=== PATIENT | female | born 1965 | race Two or more races ===

== ENCOUNTER 2017-11-28 12:53 | Outpatient (CLI) | payer OTHER ==
[~2017-11-28 12:53] MED LIST: ESTR0.624 PO; RELAFEN500 MG
[2017-11-29] MEDS ORDERED: AMOX-CLAV 875-1 EACH PO (12:21)
== END 2017-11-28 13:14 | disposition home or self-care (01) ==
LOC: MAMO-SONO 12:53
DX: Z12.31 Encounter for screening mammogram for malignant neoplasm of breast (principal); N60.12 Diffuse cystic mastopathy of left breast; N60.11 Diffuse cystic mastopathy of right breast

== ENCOUNTER 2017-11-29 11:22 | Outpatient (CLI) | payer OTHER ==
[~2017-11-29] VITALS: Ht 160 cm; Wt 54.9 kg
[2017-11-29] MEDS ORDERED: AMOX-CLAV 875-1 EACH PO (12:21)
== END 2017-11-29 11:40 | disposition home or self-care (01) ==
LOC: OFIC 805 11:22
DX: J32.8 Other chronic sinusitis (principal); J34.3 Hypertrophy of nasal turbinates; J34.2 Deviated nasal septum; H90.3 Sensorineural hearing loss, bilateral; H93.13 Tinnitus, bilateral

== ENCOUNTER 2017-12-19 13:46 | Outpatient (CLI) | payer OTHER ==
[~2017-12-19 13:46] MED LIST changes: +AMOX-CLAV 875-1 EACH PO
== END 2017-12-19 13:56 | disposition home or self-care (01) ==
LOC: TOM 13:46
DX: J32.4 Chronic pansinusitis (principal)

== ENCOUNTER 2018-01-17 10:30 | Outpatient (CLI) | payer OTHER ==
[~2018-01-17] VITALS: Ht 152.4 cm; Wt 54.9 kg
[2018-01-17] MEDS ORDERED: ZYRTEC10 MG PO (12:19)
[2018-01-17] MEDS ORDERED: FLONASE16 GM NASAL (12:19)
== END 2018-01-17 10:45 | disposition home or self-care (01) ==
LOC: OFIC 805 10:30
DX: H90.3 Sensorineural hearing loss, bilateral (principal); H93.13 Tinnitus, bilateral; K04.8 Radicular cyst; J32.4 Chronic pansinusitis; J34.3 Hypertrophy of nasal turbinates; J34.2 Deviated nasal septum

== ENCOUNTER 2018-06-11 15:59 | Outpatient (CLI) | payer OTHER ==
[~2018-06-11 15:59] MED LIST changes: +FLONASE16 GM NASAL; +ZYRTEC10 MG PO
== END 2018-06-11 16:04 | disposition home or self-care (01) ==
LOC: LAB 15:59
DX: T22.1 Burn of first degree of shoulder and upper limb, except wrist and hand (principal); M25.521 Pain in right elbow; M25.50 Pain in unspecified joint

== ENCOUNTER 2018-06-13 13:51 | Outpatient (CLI) | payer OTHER | END 2018-06-13 14:22 | disposition home or self-care (01) | LOC: SONOGRAMA 13:51 | DX: M25.521 Pain in right elbow (principal) ==

== ENCOUNTER → 2018-09-24 07:29 | Outpatient (CLI) | payer OTHER | END | disposition home or self-care (01) | LOC: LAB 07:29 | DX: E03.8 Other specified hypothyroidism (principal) ==

== ENCOUNTER 2018-12-06 14:03 | Outpatient (CLI) | payer OTHER | END 2018-12-06 14:14 | disposition home or self-care (01) | LOC: MAMO-SONO 14:03 | DX: Z12.31 Encounter for screening mammogram for malignant neoplasm of breast (principal); N63.10 Unspecified lump in the right breast, unspecified quadrant; N63.20 Unspecified lump in the left breast, unspecified quadrant ==

== ENCOUNTER → 2019-05-10 | Outpatient (CLI) | payer OTHER | END | disposition home or self-care (01) | LOC: RAD 05-09 14:05 | DX: M79.605 Pain in left leg (principal); M25.552 Pain in left hip ==

== ENCOUNTER 2019-10-15 11:11 | Emergency (ER) | payer OTHER ==
[~2019-10-15] VITALS: Ht 160 cm; Wt 54.9 kg
== END 2019-10-15 13:18 | disposition home or self-care (01) ==
LOC: ER 11:11
DX: R19.7 Diarrhea, unspecified (principal); Z03.818 Encounter for observation for suspected exposure to other biological agents ruled out

== ENCOUNTER 2019-11-21 14:31 | Outpatient (CLI) | payer OTHER | END 2019-11-21 14:44 | disposition home or self-care (01) | LOC: MAMO-SONO 14:31 | PROVIDERS: ATTEND Specialist | DX: Z12.31 Encounter for screening mammogram for malignant neoplasm of breast (principal); N63.10 Unspecified lump in the right breast, unspecified quadrant; N63.20 Unspecified lump in the left breast, unspecified quadrant ==

== ENCOUNTER 2019-12-20 12:22 | Outpatient (CLI) | payer OTHER | END 2019-12-20 12:38 | disposition home or self-care (01) | LOC: EDBD 12:22 → SONOGRAMA 12:22 | PROVIDERS: ATTEND Surgery | DX: N60.11 Diffuse cystic mastopathy of right breast (principal); N60.12 Diffuse cystic mastopathy of left breast ==

== ENCOUNTER 2020-01-03 17:54 | Outpatient (CLI) | payer OTHER | END 2020-01-03 17:55 | disposition home or self-care (01) | LOC: PPH VACUNA 17:54 | DX: Z23 Encounter for immunization (principal) ==

== ENCOUNTER 2020-01-14 08:06 | Outpatient (CLI) | payer OTHER | END 2020-01-14 08:22 | disposition home or self-care (01) | LOC: LAB 08:06 | PROVIDERS: ATTEND Internal Medicine Cardiovascular Disease | DX: I10 Essential (primary) hypertension (principal); E11.9 Type 2 diabetes mellitus without complications; E03.8 Other specified hypothyroidism; E78.2 Mixed hyperlipidemia; E55.9 Vitamin D deficiency, unspecified ==

== ENCOUNTER 2020-04-02 15:24 | Outpatient (CLI) | payer OTHER | END 2020-04-02 18:00 | disposition home or self-care (01) | LOC: PPH VACUNA 15:24 | DX: Z23 Encounter for immunization (principal) ==

== ENCOUNTER 2020-05-14 14:06 | Outpatient (CLI) | payer OTHER | END 2020-05-14 14:11 | disposition home or self-care (01) | LOC: RAD 14:06 | PROVIDERS: ATTEND General Practice | DX: R05 Cough (principal) ==

== ENCOUNTER 2020-05-18 06:47 | Outpatient (CLI) | payer OTHER | END 2020-05-18 06:51 | disposition home or self-care (01) | LOC: LAB 06:47 | PROVIDERS: ATTEND General Practice | DX: Z11.3 Encounter for screening for infections with a predominantly sexual mode of transmission (principal) ==

== ENCOUNTER 2020-06-02 13:45 | Outpatient (CLI) | payer OTHER | END 2020-06-02 13:57 | disposition home or self-care (01) | LOC: RAD 13:45 → SONOGRAMA 13:45 | PROVIDERS: ATTEND Surgery | DX: N60.01 Solitary cyst of right breast (principal); N60.02 Solitary cyst of left breast; N60.11 Diffuse cystic mastopathy of right breast; N60.12 Diffuse cystic mastopathy of left breast; N64.59 Other signs and symptoms in breast ==

== ENCOUNTER 2020-06-12 14:15 | Outpatient (CLI) | payer OTHER | END 2020-06-12 14:39 | disposition home or self-care (01) | LOC: SONOGRAMA 14:15 | PROVIDERS: ATTEND Surgery | DX: N60.02 Solitary cyst of left breast (principal); N60.11 Diffuse cystic mastopathy of right breast; N60.12 Diffuse cystic mastopathy of left breast; N64.59 Other signs and symptoms in breast ==

== ENCOUNTER 2020-09-22 07:16 | Outpatient (CLI) | payer OTHER | END 2020-09-22 07:18 | disposition home or self-care (01) | LOC: SONOGRAMA 07:16 | PROVIDERS: ATTEND Internal Medicine Cardiovascular Disease | DX: R10.9 Unspecified abdominal pain (principal) ==

== ENCOUNTER 2021-01-21 16:15 | Outpatient (CLI) | payer OTHER | END 2021-01-21 16:20 | disposition home or self-care (01) | LOC: PPH VACUNA 16:15 | PROVIDERS: ATTEND Emergency Medicine Pediatric Emergency Medicine | DX: Z23 Encounter for immunization (principal) ==

== ENCOUNTER 2021-02-08 10:55 | Outpatient (CLI) | payer OTHER | END 2021-02-08 10:59 | disposition home or self-care (01) | LOC: MAMO-SONO 10:55 | PROVIDERS: ATTEND Surgery | DX: N60.11 Diffuse cystic mastopathy of right breast (principal); N60.12 Diffuse cystic mastopathy of left breast; Z12.31 Encounter for screening mammogram for malignant neoplasm of breast ==

== ENCOUNTER → 2021-03-01 07:06 | Outpatient (CLI) | payer OTHER | END | disposition home or self-care (01) | LOC: LAB 07:06 | PROVIDERS: ATTEND Internal Medicine Cardiovascular Disease | DX: I10 Essential (primary) hypertension (principal); E11.9 Type 2 diabetes mellitus without complications; E03.8 Other specified hypothyroidism; E78.2 Mixed hyperlipidemia; E55.9 Vitamin D deficiency, unspecified ==

== ENCOUNTER → 2021-04-02 | Outpatient (CLI) | payer OTHER | END | disposition home or self-care (01) | LOC: PPH VACUNA 08:00 | PROVIDERS: ATTEND Emergency Medicine Pediatric Emergency Medicine | DX: Z23 Encounter for immunization (principal) ==

== ENCOUNTER 2021-09-07 13:59 | Outpatient (CLI) | payer OTHER | END 2021-09-07 14:05 | disposition home or self-care (01) | LOC: RAD 13:59 | PROVIDERS: ATTEND General Practice | DX: M25.562 Pain in left knee (principal) ==

== ENCOUNTER 2021-09-08 07:48 | Outpatient (CLI) | payer OTHER | END 2021-09-08 07:52 | disposition home or self-care (01) | LOC: LAB 07:48 | PROVIDERS: ATTEND General Practice | DX: Z00.00 Encounter for general adult medical examination without abnormal findings (principal); E78.5 Hyperlipidemia, unspecified; E55.9 Vitamin D deficiency, unspecified; R42 Dizziness and giddiness; N39.0 Urinary tract infection, site not specified; R10.2 Pelvic and perineal pain; R10.9 Unspecified abdominal pain; R51.9 Headache, unspecified ==

== ENCOUNTER 2021-12-15 13:20 | Outpatient (CLI) | payer OTHER | END 2021-12-15 13:25 | disposition home or self-care (01) | LOC: PPH VACUNA 13:20 | PROVIDERS: ATTEND Emergency Medicine Pediatric Emergency Medicine | DX: Z23 Encounter for immunization (principal) ==

== ENCOUNTER 2022-11-23 14:25 | Outpatient (CLI) | payer OTHER | END 2022-11-23 14:32 | disposition home or self-care (01) | LOC: MRI 14:25 | PROVIDERS: ATTEND Orthopaedic Surgery | DX: M25.561 Pain in right knee (principal) | CPT/HCPCS: 73721 ==

== ENCOUNTER 2023-01-06 01:10 | Outpatient (CLI) | payer OTHER | END 2023-01-06 01:20 | disposition home or self-care (01) | LOC: PPH VACUNA 01:10 | PROVIDERS: ATTEND Emergency Medicine Pediatric Emergency Medicine | DX: Z23 Encounter for immunization (principal) | CPT/HCPCS: 90686; G0008 ==

== ENCOUNTER 2023-02-13 13:57 | Outpatient (CLI) | payer OTHER | END 2023-02-13 14:02 | disposition home or self-care (01) | LOC: RAD 13:57 | PROVIDERS: ATTEND Orthopaedic Surgery Sports Medicine | DX: M17.0 Bilateral primary osteoarthritis of knee (principal) ==

== ENCOUNTER 2023-02-27 08:28 | Outpatient (CLI) | payer OTHER ==
[2023-02-27 08:46] LABS: HEMATOCRIT 37.6 % (36.0-45.00); HEMOGLOBIN 12.1 g/dL (12.0-15.00); MEAN CELL VOLUME 83.6 fL (80.00-100.00); MEAN CORPUSCULAR HEMOGLOBIN 26.9 pg (27.00-32.0); MEAN CORPUSCULAR HGB CONC 32.2 g/dl (32.0-36.0); PLATELET COUNT 183 K/uL (150-450); RED CELL DISTRIBUTION WIDTH 14.4 % (11.5-14.5)
[2023-02-27 08:50] LABS: PH,URINE 5.5 (5.0-8.0); URINE APPEARANCE Clear; URINE BILIRRUBIN Negative (NEGATIVE); URINE BLOOD Trace; URINE COLOR Yellow; URINE GLUCOSE Negative (NEGATIVE); URINE LEUKOCYTE Negative; URINE NITRATE Negative; URINE PROTEIN Negative (NEGATIVE); URINE UROBILINOGEN 0.2 E.U./dl
[2023-02-27 08:55] LABS: URINE BACTERIA 15.1 uL (0.0-1933)
[2023-02-27 09:02] LABS: URINE EPITHELIAL CELLS 0.6 uL (0.0-38.8); URINE RBC 1.8 uL (0.0-20.8); URINE WBC 0.6 uL (0.0-23.2)
[2023-02-27 09:27] LABS: INR 0.99; PARTIAL THROMBOPLASTIN TIME 31.6 SECONDS (22.0-34.0); PROTHROMBIN TIME 10.4 SECONDS (9.0-11.5)
[2023-02-27 09:35] LABS: ALBUMIN 4.1 gm/dL (3.4-5.0); BILIRUBIN TOTAL 0.66 mg/dL (0.3-1.2); CALCIUM 9.6 mg/dL (8.5-10.1); CREATININE SERUM 0.76 mg/dL (0.55-1.02); GFR 78.44; GLOBULINA 3.6 G/DL (2.4-3.5); POTASSIUM 4.14 mEq/L (3.5-5.1); TOTAL PROTEIN 7.7 gm/dL (6.4-8.2)
== END 2023-02-27 08:30 | disposition home or self-care (01) ==
LOC: LAB 08:28
PROVIDERS: ATTEND Orthopaedic Surgery Sports Medicine
DX: S83.272A Complex tear of lateral meniscus, current injury, left knee, initial encounter (principal)

== ENCOUNTER 2023-02-27 13:29 | Outpatient (CLI) | payer OTHER | END 2023-02-27 13:34 | disposition home or self-care (01) | LOC: RAD 13:29 | PROVIDERS: ATTEND Orthopaedic Surgery Sports Medicine | DX: S83.272A Complex tear of lateral meniscus, current injury, left knee, initial encounter (principal) ==

== ENCOUNTER 2024-01-15 06:53 | Emergency (ER) | payer OTHER ==
[~2024-01-15] VITALS: Ht 160 cm; Wt 56.2 kg
[2024-01-15] MEDS ORDERED: KETOROLAC TROMETHAMINE 60 MG VIAL IM STA (08:06)
== END 2024-01-15 10:34 | disposition home or self-care (01) ==
LOC: ER 06:55
DX: S39.81XA Other specified injuries of abdomen, initial encounter (principal); S29.8XXA Other specified injuries of thorax, initial encounter; S79.912A Unspecified injury of left hip, initial encounter; S49.92XA Unspecified injury of left shoulder and upper arm, initial encounter; V49.88XA Car occupant (driver) (passenger) injured in other specified transport accidents, initial encounter; Y93.89 Activity, other specified; Y92.89 Other specified places as the place of occurrence of the external cause; Y99.8 Other external cause status

== ENCOUNTER 2024-02-26 08:39 | Outpatient (CLI) | payer OTHER ==
[2024-02-26 08:49] LABS: HEMATOCRIT 41.1 % (36.0-45.00); HEMOGLOBIN 13.5 g/dL (12.0-15.00); MEAN CELL VOLUME 83.3 fL (80.00-100.00); MEAN CORPUSCULAR HEMOGLOBIN 27.3 pg (27.00-32.0); MEAN CORPUSCULAR HGB CONC 32.8 g/dl (32.0-36.0); PLATELET COUNT 209 K/uL (150-450); RED BLOOD COUNT 4.93 M/uL (4.00-6.00); RED CELL DISTRIBUTION WIDTH 14.2 % (11.5-14.5)
[2024-02-26 08:50] LABS: ERYTHROCYTE SEDIMENTATION RATE 8 mm/hr
[2024-02-26 08:55] LABS: PH,URINE 5.5 (5.0-8.0); URINE APPEARANCE Clear; URINE BILIRRUBIN Negative (NEGATIVE); URINE BLOOD Negative; URINE COLOR Yellow; URINE GLUCOSE Negative (NEGATIVE); URINE KETONE Negative (NEGATIVE); URINE LEUKOCYTE Negative; URINE NITRATE Negative; URINE PROTEIN Negative (NEGATIVE); URINE UROBILINOGEN 0.2 E.U./dl
[2024-02-26 08:58] LABS: URINE BACTERIA 20.1 uL (0.0-1933)
[2024-02-26 09:18] LABS: URINE EPITHELIAL CELLS 0.7 uL (0.0-38.8); URINE RBC 1.3 uL (0.0-20.8); URINE WBC 0.9 uL (0.0-23.2)
[2024-02-26 10:10] LABS: ANION GAP 7 (10.0-20.0); BLOOD UREA NITROGEN 15 mg/dL (7-18); BUN CREA RATIO 19 (7.0-25.0); C-REACTIVE PROTEIN < 0.29 MG/DL (0.00-0.29); CALCIUM 9.9 mg/dL (8.5-10.1); CARBON DIOXIDE 30 mEq/L (21-32); CHLORIDE 105 mmol/L (98-107); CREATININE SERUM 0.79 mg/dL (0.55-1.02); GFR 74.75; GLUCOSE FASTING 96 mg/dL (65-100); OSMOLALITY SERUM 276 MOSM/KG (275-295); POTASSIUM 4.01 mEq/L (3.5-5.1); SODIUM 138 mmol/L (136-145); T4 TOTAL 11.51 UG/DL (4.8-13.9)
[2024-02-26 10:23] LABS: URIC ACID 4.9 mg/dL (2.5-7.5)
[2024-02-26 12:17] LABS: T3 TOTAL 1.02 ng/ml (0.846-2.02); VITAMIN D3 25 HYDROXY 46.4 ng/ml (30-120)
== END 2024-02-26 11:24 | disposition home or self-care (01) ==
LOC: LAB 08:39
DX: E03.8 Other specified hypothyroidism (principal); M06.09 Rheumatoid arthritis without rheumatoid factor, multiple sites; I10 Essential (primary) hypertension; R77.8 Other specified abnormalities of plasma proteins; E55.9 Vitamin D deficiency, unspecified; E79.0 Hyperuricemia without signs of inflammatory arthritis and tophaceous disease; R94.5 Abnormal results of liver function studies

== ENCOUNTER 2024-05-13 09:23 | Outpatient (CLI) | payer OTHER ==
[2024-05-14 08:08] LABS: HEPATITIS A ANTIBODY IGG Positive (Negative); HEPATITIS C VIRUS ANTIBODY Non Reactive (Non Reactive)
[2024-05-14 10:04] LABS: HEPATITIS B SURFACE ANTIBODY Reactive (.)
== END 2024-05-13 15:09 | disposition home or self-care (01) ==
LOC: LAB 09:23
DX: A64 Unspecified sexually transmitted disease (principal); B19.9 Unspecified viral hepatitis without hepatic coma

== ENCOUNTER 2024-07-25 13:25 | Outpatient (CLI) | payer OTHER | END 2024-07-25 13:27 | disposition home or self-care (01) | LOC: NUCLEAR 13:25 | PROVIDERS: ATTEND Internal Medicine Rheumatology | DX: M81.0 Age-related osteoporosis without current pathological fracture (principal) ==

== ENCOUNTER 2024-07-30 09:05 | Outpatient (CLI) | payer OTHER ==
[2024-07-31 09:06] LABS: COMPLEMENT C3 134 mg/dL (82-167); COMPLEMENT C4 27 mg/dL (12-38)
[2024-07-31 13:06] LABS: DNA AB DOUBLE STRABDED < 1 IU/mL (0-9); rnp 0.2 AI (0.0-0.9); sjogrens ssa < 0.2 AI (0.0-0.9); sjogrens ssb < 0.2 AI (0.0-0.9); smith ab < 0.2 AI (0.0-0.9)
== END 2024-07-30 09:14 | disposition home or self-care (01) ==
LOC: LAB 09:05
PROVIDERS: ATTEND Internal Medicine Rheumatology
DX: M35.9 Systemic involvement of connective tissue, unspecified (principal)

== ENCOUNTER → 2024-08-25 | Emergency (ER) | payer OTHER ==
[~2024-08-25] VITALS: Ht 160 cm; Wt 56.7 kg
[~2024-08-25] MED LIST changes: +DEXAMETHASONE SODIUM PHOSPHATE 4 MG/ML VIAL IM ONE; +DEXAMETHASONE SODIUM PHOSPHATE 4 MG/ML VIAL ONE; +IBUPROFEN800 MG PO; +KETOROLAC TROMETHAMINE 60 MG VIAL IM ONE
== END | disposition home or self-care (01) ==
LOC: ER 12:39
DX: M75.51 Bursitis of right shoulder (principal)

== ENCOUNTER 2024-08-27 10:51 | Outpatient (CLI) | payer OTHER ==
[~2024-08-27 10:51] MED LIST changes: -DEXAMETHASONE SODIUM PHOSPHATE 4 MG/ML VIAL IM ONE; -DEXAMETHASONE SODIUM PHOSPHATE 4 MG/ML VIAL ONE; -KETOROLAC TROMETHAMINE 60 MG VIAL IM ONE
== END 2024-08-27 10:56 | disposition home or self-care (01) ==
LOC: SONOGRAMA 10:51
DX: M75.111 Incomplete rotator cuff tear or rupture of right shoulder, not specified as traumatic (principal)

== ENCOUNTER → 2025-02-18 08:45 | Outpatient (CLI) | payer OTHER ==
[2025-02-18 08:57] LABS: BASO % 0.2 % (0.1-1.2); EOS # 0.07 (0.04-0.54); EOS % 1.5 % (0.7-7.0); LYMPH # 1.50 (1.18-3.74); LYMPH % 31.3 % (19.3-53.1); MEAN PLATELET VOLUME 12.10 fl (9.4-12.4); MONO # 0.28 (0.24-0.82); MONO % 5.8 % (4.7-12.5); NEUT # 2.93 (1.56-6.13); NEUT % 61.0 % (34.0-71.1); RED CELL DISTRIBUTION WIDTH 14.0 % (11.6-14.4)
[2025-02-18 09:43] LABS: ALT/SGPT 26.0 U/L (12-78); AST/SGOT 13.0 U/L (15-37); BILIRUBIN TOTAL 0.51 mg/dL (0.3-1.2); BUN CREA RATIO 18.0 (7.0-25.0); CREATININE SERUM 0.65 mg/dL (0.55-1.02); GFR 93.29; GLOBULINA 3.4 G/DL (2.4-3.5); GLUCOSE FASTING 93.0 mg/dL (65-100); OSMOLALITY SERUM 279.0 MOSM/KG (275-295); T4 TOTAL 9.47 UG/DL (4.8-13.9); TSH 1.14 uIU/mL (0.358-3.74)
[2025-02-18 13:16] LABS: URINE APPEARANCE Clear; URINE BILIRRUBIN Negative (NEGATIVE); URINE BLOOD Trace; URINE COLOR Yellow; URINE GLUCOSE Negative (NEGATIVE); URINE KETONE Negative (NEGATIVE); URINE LEUKOCYTE Negative; URINE NITRATE Negative; URINE PROTEIN Negative (NEGATIVE); URINE UROBILINOGEN 0.2 E.U./dl
[2025-02-18 13:17] LABS: URINE BACTERIA 206.2 uL (0.0-1933); URINE EPITHELIAL CELLS 3.3 uL (0.0-38.8); URINE RBC 7.0 uL (0.0-20.8); URINE WBC 2.0 uL (0.0-23.2)
[2025-02-18 13:33] LABS: URINE CAST 0.00 uL (0.0-1.40)
== END | disposition home or self-care (01) ==
LOC: LAB 08:45
PROVIDERS: ATTEND Internal Medicine Rheumatology
DX: G21.0 Malignant neuroleptic syndrome (principal); E03.8 Other specified hypothyroidism; R76.0 Raised antibody titer; M35.9 Systemic involvement of connective tissue, unspecified; I10 Essential (primary) hypertension

== ENCOUNTER 2025-04-11 11:00 | Outpatient (CLI) | payer OTHER | END 2025-04-11 11:10 | disposition home or self-care (01) | LOC: PPH VACUNA 11:00 | PROVIDERS: ATTEND Emergency Medicine Pediatric Emergency Medicine | DX: Z23 Encounter for immunization (principal) ==